=== PATIENT | male | born 1990 | race Caucasian/White ===

== ENCOUNTER 2023-01-28 09:45 | Emergency (ER) | payer OTHER, SELFPAY ==
[2023-01-28 10:35] VITALS: BP 132/82; PULSE 65; RESP 20; TEMP 36.3; O2SAT 98; BMI 36.6
--- NOTE | 2023-01-28 10:39 | CRLHL7_ITS ---
For Patients: As a result of the Century Cures Act, medical imaging exams and procedure reports are released immediately into your electronic medical record. You may view this report before your referring provider. If you have questions, please contact your health care provider. INDICATION: Trauma. Crush injury to the right shoulder. TECHNIQUE : Three views of the right shoulder. FINDINGS: Nondisplaced fracture of the proximal right humerus/humeral neck/tuberosity with a linear fracture lucency in the longitudinal plane and a subtle transversely oriented fracture as well. Hemarthrosis. No dislocation. The visualized included clavicle, scapula, and right-sided ribs are unremarkable. IMPRESSION: Non distracted fracture of the right proximal humerus involving the neck/tuberosity. Hemarthrosis. Dictated by Bharathi Araiza MD @ 01/28/2023 11:42:01 AM (Electronically Signed)
--- NOTE | 2023-01-28 11:33 | ED_ITS ---
HPI - Extremity Injury (Upper) General Time Seen by Provider: 11:33 Date Seen: 01/28/23 Chief Complaint: Extremity Pain/Injury, Upper Stated Complaint: hurt R shoulder while cutting down tree Time Seen by Provider: 01/28/23 11:33 Source: patient and RN notes reviewed Mode of arrival: ambulatory Limitations: no limitations History of Present Illness HPI narrative: This 33-year-old male is coming in with right shoulder pain after injuring his shoulder while cutting tree down. He had a kick back while cutting a tree down, got pinned between the tree and the truck. He has a scrape on the inside of the right arm, denies anything else being injured. He is having no difficulty breathing, no neck or back pain, no chest wall pain. He did not hit his head, no loss of consciousness. He states initially this right arm felt numb and tingly but that has went away. He thinks it was just the initial impact possibly. He hurts in the shoulder and upper arm area on the right side. MD complaint: injury to: right, shoulder and arm Related Data Previous Rx's Medication Instructions Recorded oxycodone 5 mg tablet 5 mg PO QHS PRN pain #6 tabs 01/28/23 oxycodone 5 mg tablet 5 mg PO QHS PRN pain #6 tabs 01/28/23 Allergies Allergy/AdvReac Type Severity Reaction Status Date / Time No Known Drug Allergies Allergy Verified 01/28/23 10:38 Review of Systems Narrative: As per HPI. PFSH PFSH Social History Smoking Status: Never smoker Do you use any of these nicotine containing products: None Second hand tobacco smoke exposure: No How often do you have a drink containing alcohol: 2-3 times a week How many standard drinks containing alcohol do you have on a typical day: 1 or 2 How often do you have six or more drinks on one occasion: Never AUDIT-C Alcohol total score: 3 Non-prescribed substance use: denies use Exam Const: Vital Signs, click to edit/add: Vital Signs - 24 hr 01/28/23 10:35 Temperature 97.4 F L Pulse Rate [Pulse Oximeter] 65 Respiratory Rate 20 Blood Pressure [Le ft Forearm] 132/82 Pulse Oximetry 98 Oxygen Delivery Me thod Room Air Yoandy is a 33-year-old male that ambulatory in the ED of his own accord. He is hanging onto his right arm along the side. He has strong peripheral pulses, normal light touch sensation on this side. He can flex the elbow and extend the elbow. Pain is in the upper arm and shoulder area. He is tender on the proximal humerus and the shoulder. The AC joint and clavicle palpate intact and nontender. Range of motion about the shoulder is painful for him. He has a very superficial abrasion on the inner aspect of that arm. Lungs are clear, good air entry, no wheezing or crackles, CV regular rate and rhythm no murmur. No midline tenderness of his neck. His face is atraumatic. Documenting provider has reviewed patient's vital signs: yes Course Course ED Course: Nursing staff appropriately ordered right shoulder x-ray of this patient in triage. It is back by the time I am seen him and do see the proximal humerus fracture. Did contact Orthopedics as well. Unfortunately, my a transmission of narcotics is not working, will have to give him 4 tablets from [facility]. Reevaluation(s) Time of Reevaluation #1: 12:05 Reevaluation #1: Did review the plan with patient. Some of his questions as to how long he is going to be restricted, length of recovery will be best answer by Orthopedics. I discussed with him that it is imperative he follow-up, they will ensure that this is followed and managed appropriately. He understands that there is a chance of this becoming surgical, all the more reason he needs to follow up with Orthopedics. Consultations Consultation #1: Reviewed with [facility] orthopedic [employer] patient observation assistant. We will sling the patient, he will follow-up with them in clinic next week. Time: 11:40 Vital Signs Vital signs: Initial Vital Signs Temperature 97.4 F L 01/28/23 10:35 Temperature Source Temporal Artery Scan 01/28/23 10:35 Pulse Rate 65 01/28/23 10:35 Respiratory Rate 20 01/28/23 10:35 Blood Pressure 132/82 01/28/23 10:35 Blood Pressure Mean 98 01/28/23 10:35 Blood Pressure Position Sitting 01/28/23 10:35 Pulse Oximetry 98 01/28/23 10:35 Oxygen Delivery Method Room Air 01/28/23 10:35 Vital Signs Temperature 97.4 F L 01/28/23 10:35 Pulse Rate 65 01/28/23 10:35 Respiratory Rate 20 01/28/23 10:35 Blood Pressure 132/82 01/28/23 10:35 Pulse Oximetry 98 01/28/23 10:35 Oxygen Delivery Method Room Air 01/28/23 10:35 Temperature 97.4 F L 01/28/23 10:35 Pulse Rate 65 01/28/23 10:35 Respiratory Rate 20 01/28/23 10:35 Blood Pressure 132/82 01/28/23 10:35 Pulse Oximetry 98 01/28/23 10:35 Oxygen Delivery Method Room Air 01/28/23 10:35 MDM - Extremity Injury (Upper) Imaging Data XR right shoulder: Attestation: I have reviewed the pertinent imaging results. My impression: I see a fracture of the proximal humerus through the tuberosity. Await Radiology over-read. Radiologist's impression: Patient: [facility] Facility:?[facility] Patient ID:?[id number] Site Patient ID:?[id number]. Site :?[id number] Study:?XRay Shoulder Right 3 IMAGES-01/28/2023 11:07:30 AM Ordering Physician:?PROVIDER TEMP Final Report: INDICATION: Trauma. Crush injury to the right shoulder. TECHNIQUE : Three views of the right shoulder. FINDINGS: Nondisplaced fracture of the proximal right humerus/humeral neck/tuberosity with a linear fracture lucency in the longitudinal plane and a subtle transversely oriented fracture as well. Hemarthrosis. No dislocation. The visualized included clavicle, scapula, and right-sided ribs are unremarkable. IMPRESSION: Non distracted fracture of the right proximal humerus involving the neck/tuberosity. Hemarthrosis. Dictated by Bharathi Araiza MD @ 01/28/2023 11:42:01 AM (Electronic Signature) Critical Care Time Critical Care Time Critical Care Time: No Discharge Plan Discharge Clinical Impression: Fracture of humerus Patient Disposition: Home, Self-Care Condition: Stable Instructions: Arm Fracture in Adults (ED) Additional Instructions: Use sling for immobilization and comfort. Ice arm as much as able to next couple of days to help decrease pain and swelling. Tylenol 1000mg 3x/day baseline for pain; ibuprofen per bottle directions for next level of pain control. Can use the oxycodone at bedtime if needed to help with sleeping. Need to call orthopedic office [place] morning and they will get you scheduled for follow up, phone number is [phone]. Prescriptions: New oxycodone 5 mg tablet 5 mg PO QHS PRN (Reason: pain) Qty: 6 0RF oxycodone 5 mg tablet 5 mg PO QHS PRN (Reason: pain) Qty: 6 0RF Stand Alone Forms: [facility] Info Instructions
== END 2023-01-28 12:10 | disposition home or self-care (01) ==
LOC: ED 12:04
PROVIDERS: Emergency Provider Family Medicine
DX: S42.294A Other nondisplaced fracture of upper end of right humerus, initial encounter for closed fracture (principal); X58.XXXA Exposure to other specified factors, initial encounter; Y93.89 Activity, other specified
CPT/HCPCS: 73030; 99283; 99284

== ENCOUNTER 2023-01-30 14:21 | Outpatient (CLI) | payer OTHER, SELFPAY ==
--- NOTE | 2023-01-30 14:30 | CRLHL7_ITS ---
For Patients: As a result of the Cures Act, medical imaging exams and procedure reports are released immediately into your electronic medical record. You may view this report before your referring provider. If you have questions, please contact your health care provider. INDICATION: Characterize fracture. COMPARISON: Plain film 30 April 2022. TECHNIQUE: Multidetector imaging with axial coronal and sagittal formats. FINDINGS: Anatomic glenohumeral alignment. Slightly comminuted fracture of the greater tuberosity with the dominant fragment roughly 11-12 mm lateral and cephalad displaced from the donor site. No underlying bone lesion. Fracture does not extend to the articular humeral head or lesser tuberosity. Maintained acromiohumeral distance. Normal AC joint. Small amount of posttraumatic nitrogen air at the anterior margin of the diastatic fracture. No focal hematoma. Strandy contusion in the anterior deltoid and subcutaneous soft tissues. IMPRESSION: Mildly comminuted displaced anterior greater tuberosity fracture. Please note that all CT scans at this facility use dose modulation, iterative reconstruction, and/or weight-based dosing when appropriate to reduce radiation dose to as low as reasonably achievable. Dictated by Bright Lagunas MD @ 01/31/2023 4:04:45 PM (Electronically Signed)
== END 2023-01-30 14:22 | disposition home or self-care (01) ==
PROVIDERS: PCP Family Medicine; Visit Provider Orthopaedic Surgery
DX: S42.251A Displaced fracture of greater tuberosity of right humerus, initial encounter for closed fracture (principal)
CPT/HCPCS: 73200

== ENCOUNTER 2023-02-02 06:02 | Day surgery (SDC) | payer OTHER, SELFPAY ==
[2023-02-02] VITALS (12 sets, daily range): BP systolic 126–138; BP diastolic 73–85; PULSE 62–91; RESP 14–20; TEMP 36.3–36.4; O2SAT 91–97; BMI 34.3
[2023-02-02] MEDS: LACTATED RINGERS 1000 ML 1,000 ML 100 ML IV ×2 (06:54→10:43)
[2023-02-02] MEDS: SODIUM CHLORIDE 0.9 % (FLUSH) 10 ML SYRINGE IVF (06:54)
[2023-02-02] MEDS: fentaNYL 100 MCG/2 ML inj IVP (07:23)
[2023-02-02] MEDS: MIDAZOLAM HCL 1 MG/ML inj IVP (07:23)
--- NOTE | 2023-02-02 07:25 | W.PM.H&PU ---
History & Physical Update History & Physical Update H&P Reviewed and patient assessed: No changes noted
--- NOTE | 2023-02-02 07:29 | SUR.PREOP ---
TIME?OUT:?0720 right humerus PT/RN/MDA?VERIFICATION?OF?SURGICAL?SITE,?PROCEDURE,?AND?CONSENT OBTAINED?PRIOR?TO?INVASIVE?PROCEDURE.
--- NOTE | 2023-02-02 07:30 | CRLHL7_ITS ---
For Patients: As a result of the Cures Act, medical imaging exams and procedure reports are released immediately into your electronic medical record. You may view this report before your referring provider. If you have questions, please contact your health care provider. INDICATION: Right proximal humerus fracture ORIF TECHNIQUE: 35 seconds of fluoroscopy was provided with no radiologist in attendance. 4 views right COMPARISON: 01/28/2023 FINDINGS: Bone: Fluoroscopic images shows lateral metallic plate ORIF of the humeral head and proximal humeral diaphysis. No side markers are present on submitted images. Dictated by Sonny Martinez MD @ 02/04/2023 7:24:26 AM Dictated by: Sonny Martinez MD @ 02/04/2023 07:24:35 (Electronically Signed)
[2023-02-02] MEDS: CEFAZOLIN 2 GM INJ IVP (07:34)
--- NOTE | 2023-02-02 10:36 | PM.ORPRC ---
Procedure Note Date of procedure: 02/02/23 Procedure: PREOPERATIVE DIAGNOSIS: 1. Closed, displaced, right proximal humerus (greater tuberosity) fracture POSTOPERATIVE DIAGNOSIS: 1. Closed, displaced, right proximal humerus (greater tuberosity) fracture PROCEDURE: 1. Right proximal humerus open reduction internal fixation SURGEON: Jj Fuentes MD. POSTAL DELIVERY OFFICER: RORO Ayala and Juanita Meek P.A.-C. - assistants were critical for this case to aid in patient positioning, tissue retraction, limb manipulation/positioning, and closure. ANESTHESIA: General anesthetic with supraclavicular nerve block. IMPLANTS: Arthrex 3-hole 95 degree proximal humerus locking plate with 4.0 mm fully-threaded locking screws and 3.5 mm locking and nonlocking screws. ESTIMATED BLOOD LOSS: 100 mL COMPLICATIONS: None evident INDICATIONS: The patient is a pleasant 33-year-old male who sustained a closed, displaced fracture of the right proximal humerus greater tuberosity after a tree fell onto his shoulder while he was cutting it down. X-rays and CT scan confirmed displaced greater tuberosity fracture. Based on the amount of displacement, recommendation was made for surgical intervention consisting of right proximal humerus open reduction internal fixation. Prior to surgery risks and benefits of the procedure were discussed with the patient all questions were answered and informed consent was obtained. FINDINGS: Split type right proximal humerus greater tuberosity fracture that was mildly comminuted and displaced greater than 1 cm laterally, posteriorly, and inferiorly. The rotator cuff was intact. Lesser tuberosity was intact. Following open reduction internal fixation fracture was in near anatomic position. Plate and screws were well position with all proximal screws noted to be sitting appropriately in the subchondral bone of the humeral head. DESCRIPTION OF PROCEDURE: Following a thorough discussion of risks, benefits, and alternatives consent was obtained and the operative was marked. A supraclavicular nerve block was then performed by anesthesia staff. The patient was then brought to the operative room placed in supine position on the OR table. General anesthesia was obtained the patient was given 2 g of Ancef preoperatively for prophylaxis. Patient was then rotated into the beach chair position. Head was placed in the padded head of measurement & insights and all bony prominences were well padded. The right shoulder and upper extremity were prepped and draped in usual sterile fashion in arm was placed into the Trimano arm rebolledo. A surgical time-out was performed confirming patient and the surgical site surgical procedure. A longitudinal incision was made for the deltopectoral approach. Incision was carried through subcutaneous tissues. The cephalic vein was identified. The deltopectoral interval was then developed and cephalic vein was retracted laterally with the deltoid. Electrocautery was used to maintain hemostasis. The greater tuberosity fracture was then identified. This was noted to be a large split fracture of the greater tuberosity with a small amount of comminution of the superior aspect of the fragment. The rotator cuff was intact and attached to the displaced greater tuberosity fragment. Elevators were used to mobilize the greater tuberosity fragment and fracture site was cleared of fracture hematoma. Fracture was then reduced and hold provisionally with K-wires. The 3 hole 95 degree proximal humerus locking plate was then selected and placed laterally as buttress fixation over the greater tuberosity fragment. One of the K-wires was removed and replaced with a pointed reduction clamp to allow for proper plate placement. The plate was then fixed to the shaft through the oblong hole using a 3.5 mm nonlocking cortical screw. Plate was then fixed with a distal K-wire along the humeral calcar. Proximal holes were then drilled and filled with the appropriate length 4.0 mm fully-threaded locking screws. Fluoroscopic imaging in multiple planes confirmed correct placement the screws in the subchondral bone with no intra-articular penetration. The distal shaft holes were then filled with 3.5 mm locking screws. Following completion of fixation, the locking guide was removed from the plate. There was noted to be a small comminuted piece anterior to the plate which was secured to the plate using multiple FiberTape sutures. Additional FiberTape sutures were placed through the distal supraspinatus tendon and also passed and tied through the plate. Final fluoroscopic images were obtained which confirmed anatomic reduction of the fracture with appropriate position of the plate and screws. The shoulder was placed through range of motion and fracture fragments were confirmed to be stable. Surgical incision was then irrigated with copious amounts of normal saline. The deltopectoral interval was reapproximated with 0 Vicryl sutures. Subcutaneous closure was performed with 2-0 Vicryl inverted sutures, followed by running 2-0 Stratafix and Exofin glue. Sterile dressing was applied and arm was placed into a simple sling. Patient was then rotated back into supine position woken from anesthesia and transferred to the PACU in stable condition. PLAN: 1. Discharged to home day of surgery. 2. Ice or cryo Cuff for pain and swelling. 3. Tylenol and oxycodone as needed for pain control. 4. Simple sling as needed for comfort. -Remove sling several times daily for pendulum exercises and finger, wrist, and elbow range of motion. 5. Follow-up in orthopedic clinic in 10-14 days for wound check. 6. Will initiate formal physical therapy 1 week postoperatively for passive range of motion exercises. He may advance to active assist range of motion exercises 4-6 weeks postoperatively.
--- NOTE | 2023-02-02 11:03 | W.ANESCHARGE ---
Anesthesia Charges Start Date/Time Anesthesia Start Date: 02/02/23 Anesthesia Start Time: 07:30 Stop Date/Time Anesthesia Stop Date: 02/02/23 Anesthesia Stop Time: 11:02
--- NOTE | 2023-02-02 11:44 | W.PM.NB ---
Nerve Block Nerve Block Time Seen by Provider: 07:27 Date Seen: 02/02/23 Type of block requested by surgeon for post-operative analgesia: supraclavicular Side: right Time out performed: Yes Verification of patient name: Yes Verification of date of : Yes Site marking: site marked Name of person performing procedure: Stas Continuous monitoring Was continuous monitoring of O2 sat, B/P, electronic device monitor, recorded every 15 minutes?: Yes Procedure Checklist: sterile prep, needles and gloves Ultrasound guided. Images saved: Yes Medications given in 5ml increments after negative aspiration: Ropivicaine %: 0.5 mL: 20 Needle gauge: 22 Decadron (mg): 10 Precedex (mcg): 25 Patient tolerated procedure well: Yes Block Charges Block Charge (with Pro Fee): Brachial Plexus Use of Ultrasound Machine for Block: Yes- US Guidance/pain block
--- NOTE | 2023-02-02 11:45 | W.ANESCHARGE ---
Anesthesia Charges Start Date/Time Anesthesia Start Date: 02/02/23 Anesthesia Start Time: 07:30 Stop Date/Time Anesthesia Stop Date: 02/02/23 Anesthesia Stop Time: 11:02
== END 2023-02-02 12:48 | disposition home or self-care (01) ==
PROVIDERS: PCP Family Medicine; Visit Provider Orthopaedic Surgery
PROC: (CPT 23615; principal; 2023-02-02 07:30)
DX: S42.251A Displaced fracture of greater tuberosity of right humerus, initial encounter for closed fracture (principal); G89.18 Other acute postprocedural pain
CPT/HCPCS: 23630; 01630; 64415; 73030; 76000; 76942; C1713; J0330; J0690; J1100; J2250; J2405; J2704; J2795; J3010; J7120; L3670

== ENCOUNTER 2023-04-12 07:30 | Outpatient (RCR) | payer OTHER, SELFPAY ==
--- NOTE | 2023-02-09 16:32 | PT.OPEX ---
PT [place] Outpatient Eval PT [facility] Outpatient Eval Start: 02/09/23 13:49 Freq: Status: Active Protocol: Document 02/09/23 13:49 YONIS (Rec: 02/09/23 14:33 BJKayden [id number]) E-signed By Ashli Novoa DPT Physical Therapy Outpatient Evaluation Insurance Information Recert Due Date 04/10/23 Insurance Name Other; See Comments Insurance Information/Comments financial assistance pending Medical Diagnosis s/p R proximal humerus ORIF Treating Diagnosis s/p R proximal humerus ORIF with R shoulder pain, impaired R shoulder ROM, impaired mobility/strength R shoulder/UE, currently restricted with R UE sling, unable to use R shoulder/UE, off work Subjective Subjective Patient reports injury to R shoulder Feb 01 when he was cutting down a tree. The tree ended up coming back toward him and landed on his R shoulder pinning him between the trunk and the stump. He was able to get the tree off of him and walk back up to the house. Spouse took him to the ED. Patient had xrays and had proximal humeral fx. He had surgery Feb 02, ORIF R proximal humerus. He has been in a sling since the surgery. Using L UE for daily activities. He is R handed. Pain has been tolerable. Using ibuprofen and ice as needed. Sleep has been ok. States he is doing elbow, wrist, hand ROM and taking sling off at rest to allow elbow ext stretching. Date of Last Physician Visit 02/02/23 Occupation restricted at this time with R UE in sling s/p L humeral ORIF Precautions Treatment Precautions/Contraindications s/p R proximal humerus ORIF . PT for PROM x 4 weeks, AAROM at 4-6 weeks post op Assessment Assessment/Impression Patient is a 33 year old male s/p R proximal humerus ORIF with R shoulder pain, impaired R shoulder ROM, impaired mobility/strength R shoulder/UE, currently restricted with R UE sling, unable to use R shoulder/UE, off work. Patient injured R shoulder cutting down a tree Feb 01. He is restricted with R UE sling after surgery. Has follow up with MD/PA next week. PT order for PROM x 4 weeks, progress to AAROM 4-6 weeks. He is doing elbow, wrist, hand ROM and R shoulder codmans. Reviewed exercises this session. Recommended patient use countertop/dresser support for codmans exercises . Able to initiate R shoulder PROM this session: flex 60 degrees, scap 60 degrees, IR 45 degrees, ER to neutral. PROM limited by tightness, pain. Patient to continue with HEP and sling. He would benefit from skilled PT for pain/sx management, improved R shoulder ROM, improved R shoulder mobility/strength, return to full functional use of R shoulder/UE, and establishment of HEP. Plan of Care Rehabilitation Potential Good Physical Therapy Goals 1. Decrease R shoulder pain to less than/equal to 3/10 with daily activities and with the progression of PT activities over the next 6-8 weeks. 2. Improve R shoulder PROM over the next 6-8 weeks to prepare for return to functional use of R shoulder/UE. 3. Improve R shoulder AROM over the next 8-10 weeks for return to functional use of R shoulder/ UE with daily activities. 4. Improve R shoulder/UE strength over the next 10-12 weeks for return to full functional use of R shoulder/UE with daily/ work activities. 5. Patient will be I with HEP within 12 weeks for progression toward above goals, ongoing self management of pain/sx, ongoing self improvements in ROM/strength/function, and for return to full functional use of R shoulder/UE with daily/work activities. Coordination/Communication With Referral Source Treatment Plan/Direct Interventions Manual Therapy,Therapeutic Exercises Frequency/Duration 1-2x/week Patient Will Be Discharged From Therapy Completion of LTG(s),Skills Plateau,Independent w/HEP, Independently Progressing Evaluation Billing Untimed Code Treatment Minutes 25 Complexity Moderate Certification Information Initial Certification Date 02/09/23 Ending Certification Date 04/10/23 Provider Signature Shows Agreement With POC & Medical Necessity Physician Signature & Date Requested Please Sign/Date Here Physician Comment/Change : Physician NPI Number #
== END 2023-08-10 23:59 | disposition home or self-care (01) ==
PROVIDERS: PCP Family Medicine; Visit Provider Orthopaedic Surgery
DX: S42.251A Displaced fracture of greater tuberosity of right humerus, initial encounter for closed fracture (principal); Z51.89 Encounter for other specified aftercare
CPT/HCPCS: 97110; 97162